=== PATIENT | male | born 1985 | race Caucasian/White ===

== ENCOUNTER 2018-03-26 16:23 | Emergency (ER) | payer SELFPAY ==
[~2018-03-26] VITALS: Ht 182.9 cm; Wt 110.0 kg
[~2018-03-26 16:23] MED LIST: TESSALON PER100 MG PO; ZITHROMAX250 MG PO
[2018-03-26] MEDS ORDERED: TESSALON PERLE100 MG PO (17:04)
[2018-03-26] MEDS ORDERED: PROAIR HFA108 MCG/AC IN (17:04)
[2018-03-26 17:10] VITALS: BP 146/87
== END 2018-03-26 17:10 | disposition home or self-care (01) | DRG 866 ==
LOC: ED 16:23
DX: B34.9 Viral infection, unspecified (principal); R05 Cough; F17.210 Nicotine dependence, cigarettes, uncomplicated